=== PATIENT | female | born 1970 | race Caucasian/White ===

== ENCOUNTER 2018-05-08 09:41 | Outpatient (CLI) | payer OTHER | END 2018-05-08 09:42 | disposition home or self-care (01) | LOC: C.PAT 09:41 | DX: N39.3 Stress incontinence (female) (male) (principal) ==

== ENCOUNTER 2018-05-14 10:18 | Day surgery (SDC) | payer OTHER ==
[2018-05-08 10:14] VITALS: BMI 35.6
[2018-05-14] MEDS ORDERED: Midazolam 2 MG/2 ML VIAL ONE (13:07)
[2018-05-14] MEDS ORDERED: Propofol 10 mg/ml Inj (20 ML) ONE (13:07)
[2018-05-14] MEDS ORDERED: Ciprofloxacin 400mg/200ml D5W 400 MG/200 ML BAG IVPB ONE (13:13)
[2018-05-14] MEDS: Gentamicin 80 mg in 0.9% NS 160 MG/200 ML BAG IVPB ONE ×2 (13:23→13:25)
[2018-05-14] MEDS ORDERED: HYDROmorphone 0.5 mg/0.5 ml ISec IVP PRN (13:32)
--- NOTE | 2018-05-14 13:36 | PCM.SURG1 ---
Surgeon's Initial Post Op Note - Surgeon's Notes Surgeon: [employer] Greeter: amanda Type of Anesthesia: General Mask Anesthesia Administered By: staff Pre-Operative Diagnosis: Chronic cystitis/incontence Operative Findings: BN polyps no evidence of sling erosion Post-Operative Diagnosis: Same Operation Performed: cystoscopy Specimen/Specimens Removed: na Estimated Blood Loss: EBL {In ML}: 0 Blood Products Given: N/A Drains Used: No Drains Post-Op Condition: Good Date of Surgery/Procedure: 05/14/18 Time of Surgery/Procedure: 13:36
[2018-05-14 13:57] VITALS: O2SAT 100
[2018-05-14 14:33] VITALS: PULSE 63
[2018-05-14 15:02] VITALS: BP 153/65; RESP 18; TEMP 98
--- NOTE | 2018-05-15 00:32 | OP ---
PROCEDURE DATE: 05/14/2018 PREOPERATIVE DIAGNOSIS: Incontinence. POSTOPERATIVE DIAGNOSIS: Incontinence with minimal bladder neck hypermobility. PROCEDURE: Cystoscopy. DESCRIPTION OF PROCEDURE: The procedure is as follows. Prior to the procedure, a detailed informed consent was obtained. She is aware that this is a diagnostic procedure and will not cure her incontinence. The patient signed the consent, was fully aware of the risk and complications of this procedure, and willing to accept them. She was brought into the room and draped and prepped in the usual manner. Time-out was taken according to the rules and regulations of [facility], and the patient was cystoscoped with #21 Storz panendoscope. The urethra showed no evidence of sling erosion. The bladder was then fixed atraumatically, was inspected with both 30- and 70-degree lenses. There was no evidence of sling material within the bladder. Based on the above findings, it appears the patient's urinary incontinence is due to a combination of chronic infection and unstable bladder. The patient will be continued on Ditropan, Macrodantin, and we will refer her to Urogynecology for further evaluation. Dilan Lizama MD
== END 2018-05-14 15:27 | disposition home or self-care (01) ==
LOC: C.SDS 10:18
PROVIDERS: ATTEND Urology
DX: N39.3 Stress incontinence (female) (male) (principal); R32 Unspecified urinary incontinence
CPT/HCPCS: 52000; J0744; J1580